=== PATIENT | female | born 1965 | race Two or more races ===

== ENCOUNTER 2022-05-21 16:19 | Emergency (ER) | payer OTHER ==
[~2022-05-21] VITALS: Ht 160 cm; Wt 61.2 kg
[2022-05-21 16:41] VITALS: BP 113/68
[2022-05-21] MEDS ORDERED: PROM118S5 PO (17:37)
--- NOTE | 2022-05-21 18:40 | NUR ---
Patient discharged to home in stable condition. Written and verbal after care instructions given. Patient verbalizes understanding of instruction.
== END 2022-05-21 18:40 | disposition home or self-care (01) ==
LOC: ER 16:36
DX: U07.1 COVID-19 (principal)
CPT/HCPCS: 71045-TC